=== PATIENT | male | born 1945 | race Caucasian/White ===

== ENCOUNTER → 2017-02-20 | Outpatient (CLI) | payer BC ==
[~2017-02-20] MED LIST: AMLO-114 PO; APIX1TAB3 PO; ASCA500 PO; ASPI81TA28 PO; CARV12.5 PO; CEPH500C2 PO; COEN1CAP7 PO; ERYOPO OPL; MULT-506 PO; OXYC-57 PO
--- NOTE | 2017-02-27 08:53 | CODING QUERY MEDICAL NECESSITY ---
SUPPORTING DIAGNOSIS NEEDED Dr. Guevara, A supporting diagnosis is required for the test/procedure performed on this patient in order for us to be reimbursed by the patient's insurance. Please provide a supporting diagnosis for the following test/procedure listed below next to the test name along with your signature. *If there is no additional diagnosis for this patient that would support the following test/procedure please document that below next to the test/procedure. Test(s)/Procedure(s) that require a supporting diagnosis: * [id number] PSA DIAGNOSIS: DATE OF SERVICE: 02/20/17 Provider Signature: Date: Thank you Alexys Lowe [facility] Information Management Once completed, please kindly fax back to [phone] For questions please call [phone]
== END ==
LOC: C.LAB 11:14
PROVIDERS: ATTEND Urology
DX: Z00.00 Encounter for general adult medical examination without abnormal findings (principal); N20.0 Calculus of kidney; Z87.442 Personal history of urinary calculi; Z12.5 Encounter for screening for malignant neoplasm of prostate

== ENCOUNTER → 2017-02-24 | Outpatient (CLI) | payer BC ==
--- NOTE | 2017-02-24 12:24 | DIAGNOSTIC IMAGING REPORT ---
CT SCAN OF THE PARANASAL SINUSES CLINICAL HISTORY: Sinusitis. Sinus polyp. COMPARISON STUDY: No priors. TECHNIQUE: High-resolution CT scan of the paranasal sinuses is performed. Images are reviewed in the axial, sagittal, and coronal planes. IV contrast was not administered for this examination. A dose lowering technique was utilized adhering to the principles of ALARA. CT DOSE: 365.52 mGycm FINDINGS: Maxillary antra: There is trace dependent mucosal thickening seen bilaterally. Small bony septations are seen inferiorly within both maxillary antra Anterior ethmoid sinuses: Mild mucosal thickening is seen on the left. Trace mucosal thickening is seen on the right. Posterior ethmoid sinuses: Trace mucosal thickening is seen in the left. Clear on the right. Sphenoid sinuses: Clear. Frontal sinuses: Mild to moderate mucosal thickening is on the left. Trace mucosal thickening is seen on the right. Ostiomeatal complexes: Patent bilaterally. Frontoethmoidal and sphenoethmoidal recesses: Patent bilaterally. There is mild narrowing of the left frontoethmoidal recess secondary to mucosal thickening Carotid arteries: The carotid arteries are protuberant but covered and there are bilateral septal attachments. Ethmoid roofs: There is asymmetric elevation of the left ethmoid roof as compared to the right. Nasal turbinates: There is gema bullosa of the right middle nasal turbinate. There is a polypoid soft tissue structure identified in the expected location of the left middle nasal turbinate adjacent to a large bony spur of the nasal septum. This measures up to 1.8 cm and may represent a polyp in the nasal cavity. This bulges towards the left maxillary antrum and narrows the ostiomeatal complex. Nasal septum: There is marked leftward deviation of the bony nasal septum with a large spur. Optic nerves: Covered. Orbits: The bony orbits are intact. Orbital contents are normal in appearance. Calvarium: The skeletal structures are osteopenic. The imaged calvarium is normal in appearance Mastoid air cells: Well pneumatized. Brain parenchyma: Partially visualized brain parenchyma is within normal limits noting age-related involutional change. There is atherosclerotic calcification of the cavernous carotid arteries. IMPRESSION: 1. Mild paranasal sinus disease as detailed above. 2. There is a 1.8 cm lobulated soft tissue structure within the left nasopharynx in the expected location of the middle nasal turbinate. This protrudes towards the maxillary antrum and may represent a polyp as clinically suggested. Electronically signed by: Javi Bello M.D. 02/24/2017 12:23 PM Dictated Date/Time: 02/24/2017 12:18 PM
== END | disposition home or self-care (01) ==
LOC: C.CTS 11:20
PROVIDERS: ATTEND Otolaryngology
DX: J32.2 Chronic ethmoidal sinusitis (principal); J33.8 Other polyp of sinus

== ENCOUNTER 2017-03-10 05:06 | Day surgery (SDC) | payer BC ==
[2017-03-06 09:00] VITALS: BMI 33.0
--- NOTE | 2017-03-06 09:51 | PAT Medication Instructions ---
Service Date Mar 06, 2017. Current Home Medication List Amlodipine (Norvasc), 10 MG PO QAM Apixaban (Eliquis), 5 MG PO QPM Ascorbic Acid (Vitamin C), 1 TAB PO QDL Aspirin (Aspirin Ec), 81 MG PO QAM Carvedilol (Coreg), 0.5 TAB PO QPM Coenzyme Q10 (Ubidecarenone) (Coq10), 1 CAP PO QPM Multivitamin (Multivitamin), 1 TAB PO QPM Medication Instructions For Your Scheduled Surgery - Check with surgeon for instructions: Apixaban (Eliquis), 5 MG PO QPM Aspirin (Aspirin Ec), 81 MG PO QAM - Hold the following medications starting : Coenzyme Q10 (Ubidecarenone) (Coq10), 1 CAP PO QPM - Take the following medications the morning of surgery with a sip of water: Amlodipine (Norvasc), 10 MG PO QAM - Take the following medications as scheduled the night before surgery: Multivitamin (Multivitamin), 1 TAB PO QPM Carvedilol (Coreg), 0.5 TAB PO QPM Ascorbic Acid (Vitamin C), 1 TAB PO QDL If you have any questions please call us at [phone] or [phone] or [phone]
--- NOTE | 2017-03-09 10:31 | History and Physical ---
History & Physical Date Mar 09, 2017. Chief Complaint Chronic sinusitis History of Present Illness The patient is a 71 year old male with complaints of chronic sinusitis and deviated septum Additional History Hepatic Disease: No Endocrine Disorder: No Kidney Disease: No Hypertension: No Heart Disease: No Bleeding Tendencies: No Infectious Diseases: No Allergies Coded Allergies: No Known Allergies (Unverified , 03/06/17) Home Medications Scheduled Amlodipine (Norvasc), 10 MG PO QAM Apixaban (Eliquis), 5 MG PO QPM Ascorbic Acid (Vitamin C), 1 TAB PO QDL Aspirin (Aspirin Ec), 81 MG PO QAM Carvedilol (Coreg), 0.5 TAB PO QPM Coenzyme Q10 (Ubidecarenone) (Coq10), 1 CAP PO QPM Multivitamin (Multivitamin), 1 TAB PO QPM Physical Examination Skin: warm/dry, no rash Eyes: normal inspection, EOMI, sclerae normal ENT: normal ENT inspection, pharynx normal Head: normocephalic, atraumatic Neck: supple, no adenopathy, trachea midline Respiratory/Chest: lungs clear, normal breath sounds, no respiratory distress Cardiovascular: regular rate, rhythm, no edema, no murmur Abdomen / GI: normal bowel sounds, non tender Back: normal inspection Extremities: normal inspection, normal range of motion Neurologic/Psych: no motor/sensory deficits, alert, normal reflexes, oriented x 3 Diagnosis Chronic sinusitis and deviated septum Plan of Treatment Septoplasty and endoscopic sinus surgery
[~2017-03-10] VITALS: Ht 180.3 cm; Wt 106.2 kg
[~2017-03-10 05:06] MED LIST changes: -CEPH500C2 PO; -ERYOPO OPL; -OXYC-57 PO
[2017-03-10 05:44] VITALS: BP 175/99; PULSE 65; TEMP 36.5; O2SAT 97; Ht 180.3 cm; Wt 106.2 kg
[2017-03-10] MEDS ORDERED: CEFAZOLIN 2000 MG/60 ML D5W IV SCH (06:00)
[2017-03-10] MEDS ORDERED: LACTATED RINGER'S 1000ML 1,000 ML IV SCH (06:00)
[2017-03-10] MEDS ORDERED: FENTANYL CITRATE INJ 50 MCG/1 ML 2 ML VIAL ONE (06:55)
[2017-03-10] MEDS ORDERED: HYDROmorphone INJ 2 MG/ML SYR/VIAL ONE (06:55)
[2017-03-10] MEDS ORDERED: MIDAZOLAM HCL 1 MG/ML 2ML VIAL ONE (06:55)
--- NOTE | 2017-03-10 07:01 | History & Physical Bridge Note ---
H&P Re-Evaluation Bridge Note: I have examined the patient, reviewed the History & Physical and in the interval since the performance of the History & Physical I have noted the following changes of clinical significance: No changes noted
[2017-03-10] MEDS ORDERED: BACITRACIN OINT 15 GM TUBE ONE (07:03)
[2017-03-10] MEDS ORDERED: GELATIN SPONGE 12-7MM ONE (07:03)
[2017-03-10] MEDS ORDERED: TRIAMCINOLONE ACET 40 MG/ML VIAL ONE (07:03)
[2017-03-10] MEDS ORDERED: LIDO 2%/EPINEPHRINE 1:100000 20 ML VIAL INFIL ONE (07:03)
[2017-03-10] MEDS ORDERED: LIDOCAINE 4% INH SOLN 4 ML BTL ONE (07:04)
[2017-03-10] MEDS ORDERED: EpINEphrine INJ 1MG/ML AMP 1 MG/ML AMP ONE (07:04)
[2017-03-10] MEDS ORDERED: EpHEDrine SULFATE 50MG/5ML SYR ONE (07:54)
[2017-03-10] MEDS ORDERED: NEOSTIGMINE METHYLSULFATE 5 MG/5 ML SYR ONE (07:54)
[2017-03-10] MEDS ORDERED: PROPOFOL IV EMULSION 10 MG/ML 20 ML VIAL IV ONE (07:54)
[2017-03-10] MEDS ORDERED: DEXAMETHASONE SOD INJ 4 MG/ML VIAL ONE (07:54)
[2017-03-10] MEDS ORDERED: GLYCOPYRROLATE INJ 0.2 MG/ML VIAL ONE (07:54)
[2017-03-10] MEDS ORDERED: LIDOCAINE HCL 2% 2 ML VIAL (20MG/ML) ONE (07:54)
[2017-03-10] MEDS ORDERED: ONDANSETRON INJ 2 MG/ML 2 ML VIAL ONE (07:54)
[2017-03-10] MEDS ORDERED: ROCURONIUM BROMIDE 10 MG/ML 5 ML VIAL ONE (07:54)
[2017-03-10] MEDS ORDERED: LARYING-O-JET KIT (LTA) ONE ×2 (08:00)
[2017-03-10] MEDS ORDERED: ONDANSETRON INJ 2 MG/ML 2 ML VIAL IV PRN (08:30)
[2017-03-10] MEDS ORDERED: FENTANYL CITRATE INJ 50 MCG/1 ML 2 ML VIAL IV PRN (08:30)
[2017-03-10] MEDS ORDERED: ATROPINE SULFATE 0.1 MG/ML 5ML SYR IV PRN (08:30)
[2017-03-10] MEDS ORDERED: EpHEDrine SULFATE INJ 50 MG/ML AMP IV PRN (08:30)
[2017-03-10] MEDS ORDERED: SODIUM CHLORIDE 0.9% 1000ML 1,000 ML IV SCH (09:09)
[2017-03-10] MEDS ORDERED: OXYCODONE/ACETAMINOPHEN 5-325 TAB PO PRN ×2 (09:15)
--- NOTE | 2017-03-10 09:15 | [facility] Operative Report ---
Operative Report Operative Date Mar 10, 2017. Pre-Operative Diagnosis Chronic sinusitis and deviated septum Post-Operative Diagnosis same as pre-operative Procedure(s) Performed Endoscopic Sinus Surgery of Right and Left Total Ethmoidectomies, Right and Left Total Maxillary and Frontal Sinusotomies with Computer Guidance and Septoplasty Surgeon Dr. Saab Audiovisual Technician Surgeon(s) none per surgeon Estimated Blood Loss 100ml Findings Large left antrochoanal polyp Specimens A: left nasal polyp Anesthesia Gen. endotracheal Complication(s) None Disposition Recovery Room / PACU Indications 71-year-old gentleman with chronic sinusitis and large left antral choanal polyp with opacified frontal ethmoid and maxillary sinuses and septal deviation to the left Description of Procedure The patient was brought to the operating room placed in the supine position. General endotracheal anesthesia was induced. [employer] device was calibrated and used for the entire procedure. Cottonoids with topical solution of 4 mL of 4% Xylocaine mixed with 1 mL of epinephrine was used. Injection of 2% Xylocaine with 1 100,000 strength epinephrine was used. The right maxillary sinus was cannulated with the guidewire and dilated using the 6 mm balloon. The left maxillary sinus could not be cannulated due to the large polyp. The left nasal frontal duct was cannulated with the guidewire with [employer] computer guidance and dilated using the 6 mm balloon. The guidewire was left in place as a marker. Frontal sinusotomy was performed using the shaver couple with the [employer] device removing the anterior wall and then the posterior wall vac are nasi cell following the guidewire superiorly to open up the nasal frontal duct. At this point total ethmoidectomy was performed opening up the bullae ethmoidalis going through the ground lamella into the posterior ethmoid air cells, delineating the posterior most ethmoid air cell. The lamina papyracea and skull base were identified and followed anteriorly exonerating all the posterior and then all the anterior ethmoid air cells up to the previously dilated nasal frontal duct. The nasal frontal duct was redilated with the 6 mm meter balloon and suctioned clean of purulent material. The maxillary sinus was opened after removing a large antrochoanal polyp. The sinus opening was found using the seeker and then connected to the opening where the polyp came through creating a large left maxillary sinus antrostomy. The right frontal sinusotomy and total ethmoidectomy was performed in a similar manner. The right maxillary sinus was left as a natural maxillary opening which was dilated. At this point septoplasty was was performed using the 15 blade the caudal dissector the [place] dissector and the Richard forceps. A large bony and cartilaginous spur projecting to the left inferiorly was removed. The incision was along the spur and superior inferior tunnels were elevated to isolate the spur which was fractured superiorly and removed. Propel stents were placed and a piece of Gelfoam was placed along the left side the septum. The patient tolerated the procedure well was taken recovery area in satisfactory condition. I attest to the content of the Intraoperative Record and any orders documented therein. Any exceptions are noted below.
[2017-03-10] MEDS ORDERED: CEPH500C2 PO (09:17)
[2017-03-10] MEDS ORDERED: OXYC-57 PO (09:17)
--- NOTE | 2017-03-10 09:18 | Discharge Instructions ---
Discharge Instructions Date of Service Mar 10, 2017. Admission Reason for Admission: Chronic Sinusitis, Deviated Septum Discharge Discharge Diagnosis / Problem: same Discharge Goals Goal(s): Improve disease control Activity Recommendations Activity Limitations: per Instructions/Follow-up section . Instructions / Follow-Up Instructions / Follow-Up ACTIVITY RECOMMENDATIONS: * Being up and around is good, but no strenuous activity, heavy lifting or physical exertion for one week. * Keep your head elevated 30 degrees when lying down or sleeping. * Do not blow your nose for 48 hours, sniff back instead. * Avoid hot showers. OVER THE COUNTER MEDICATIONS: * You may use Tylenol * Avoid aspirin or aspirin containing products, e.g. as they may increase bleeding. SPECIAL CARE INSTRUCTIONS: * Expect to have bloody drainage from your nose and/or down your throat for one to three days. Change drip pad as needed. * Begin irrigating your nose with saline solution today, at least six to ten times per day and sniff back to help remove old clots or crust. * You may experience nasal and facial congestion, pain and pressure, this is normal. * Please call with any significant and/or progressive pain, redness, swelling around the eyes, visual changes, fever of 101.5 degrees F, active bleeding or any problems or concerns. * If active bleeding occurs, spray the nose three times at one minute intervals with Afrin spray and call or cell phone: . If unable to reach the doctor, go to the nearest Emergency Department. Special Diet: * Avoid extremely hot fluids. FOLLOW UP VISIT: Follow-up Visit with Dr. Saab If not already scheduled, please call to schedule. Current Hospital Diet Patient's current hospital diet: Discharge Diet Recommended Diet: Regular Diet Procedures Procedures Performed: Endoscopic Sinus Surgery of Right and Left Total Ethmoidectomies, Right and Left Total Maxillary and Frontal Sinusotomies with Computer Guidance and Septoplasty Pending Studies Studies pending at discharge: no Medical Emergencies . Who to Call and When: Medical Emergencies: If at any time you feel your situation is an emergency, please call 911 immediately. . Non-Emergent Contact Non-Emergency issues call your: Primary Care Provider . "Provider Documentation" section prepared by Brigitte Saab. . VTE Core Measure Inpt VTE Proph given/why not?: SCD's [place] Drug Monitoring Program Search Results: no issues identified
[2017-03-10] MEDS ORDERED: LABETALOL HCL IV 5 MG/ML 20ML IV ONE (09:23)
[2017-03-10] MEDS ORDERED: NURSING VERBAL MED ORDER ONE ×2 (10:00→10:45)
[2017-03-10] MEDS ORDERED: PROMETHAZINE HCL INJ 6.25 MG in SODIUM CHLORIDE 0.9% 50ML 50 ML IV ONE ×2 (10:15→10:45)
--- NOTE | 2017-03-10 11:06 | Anesthesiology Progress Note ---
Anesthesia Post Op Note Date & Time Mar 10, 2017 at 11:06 Vital Signs Pain Intensity: 0 Vital Signs Past 12 Hours Date Time Temp Pulse Resp B/P (MAP) Pulse Ox O2 Delivery O2 Flow Rate FiO2 03/10/17 11:02 36.2 67 20 165/88 97 Nasal Cannula 2 03/10/17 11:01 165/88 03/10/17 11:00 70 23 03/10/17 11:00 71 23 98 03/10/17 10:56 156/83 03/10/17 10:55 66 15 95 03/10/17 10:55 68 15 03/10/17 10:51 167/85 03/10/17 10:50 72 13 94 03/10/17 10:50 71 13 03/10/17 10:46 155/94 03/10/17 10:45 68 13 92 03/10/17 10:45 66 13 03/10/17 10:41 171/83 03/10/17 10:40 75 27 03/10/17 10:40 75 27 95 03/10/17 10:36 154/94 03/10/17 10:35 64 12 03/10/17 10:35 64 12 92 03/10/17 10:31 155/93 03/10/17 10:30 65 14 03/10/17 10:30 64 14 95 03/10/17 10:26 166/107 03/10/17 10:25 69 20 92 03/10/17 10:25 71 20 03/10/17 10:21 177/92 03/10/17 10:20 73 14 03/10/17 10:20 74 14 97 03/10/17 10:16 171/93 03/10/17 10:15 70 14 03/10/17 10:15 69 14 96 03/10/17 10:11 182/96 03/10/17 10:10 72 11 03/10/17 10:10 71 11 99 03/10/17 10:06 185/103 03/10/17 10:05 61 11 03/10/17 10:05 62 11 94 03/10/17 10:01 178/99 03/10/17 10:00 63 13 03/10/17 10:00 62 13 95 03/10/17 09:56 176/98 03/10/17 09:55 59 15 93 03/10/17 09:55 59 15 03/10/17 09:51 161/93 03/10/17 09:50 70 15 03/10/17 09:50 74 15 93 03/10/17 09:46 171/92 03/10/17 09:45 58 8 96 03/10/17 09:45 57 8 03/10/17 09:43 179/102 03/10/17 09:41 179/113 03/10/17 09:40 73 9 03/10/17 09:40 73 9 97 03/10/17 09:36 172/95 03/10/17 09:35 78 15 96 03/10/17 09:35 78 15 03/10/17 09:31 177/94 03/10/17 09:30 69 28 91 03/10/17 09:30 69 28 03/10/17 09:29 175/102 03/10/17 09:26 196/113 03/10/17 09:25 79 16 94 03/10/17 09:25 79 16 03/10/17 09:21 140/100 03/10/17 09:20 69 6 03/10/17 09:20 70 6 189/101 95 03/10/17 09:16 190/95 03/10/17 09:15 36 67 18 190/95 99 Mask 10 03/10/17 09:15 75 9 03/10/17 09:15 75 9 97 03/10/17 05:44 36.5 65 20 175/99 (124) 97 Room Air Notes Mental Status: alert / awake / arousable, participated in evaluation Pt Amnestic to Procedure: Yes Nausea / Vomiting: adequately controlled Pain: adequately controlled Airway Patency, RR, SpO2: stable & adequate BP & HR: stable & adequate Hydration State: stable & adequate Anesthetic Complications: no major complications apparent
[2017-03-10 11:15] VITALS: BP 165/86; PULSE 81; TEMP 36.2; O2SAT 97
[2017-03-10 11:45] VITALS: BP 174/83; PULSE 84; O2SAT 94
== END 2017-03-10 13:10 | disposition home or self-care (01) ==
LOC: C.ACU 05:06
PROVIDERS: ATTEND Otolaryngology
DX: J32.9 Chronic sinusitis, unspecified (principal); J34.2 Deviated nasal septum; J33.9 Nasal polyp, unspecified; Z79.82 Long term (current) use of aspirin; Z79.899 Other long term (current) drug therapy

== ENCOUNTER 2017-05-07 13:34 | Emergency (ER) | payer BC ==
[~2017-05-07] VITALS: Ht 180.3 cm; Wt 109.2 kg
[~2017-05-07 13:34] MED LIST changes: +CEPH500C2 PO; +OXYC-57 PO
[2017-05-07 13:36] VITALS: TEMP 36.6; Ht 180.3 cm; Wt 109.2 kg
--- NOTE | 2017-05-07 14:02 | EMERGENCY ROOM VISIT NOTE ---
History Report prepared by Meganibe: Dacia Gardiner Under the Supervision of: Dr. Shekhar Schumacher M.D. First contact with patient: 13:53 Chief Complaint: FACIAL PAIN/INJURY Stated Complaint: LEFT FACIAL PAIN History of Present Illness The patient is a 71 year old male who presents to the Emergency Room with complaints of persistent left sided facial pain for the past 2 days. He reports he had a polyp removed from his left nasal cavity by Dr. Saab on March 10. 2 days ago, his left eye started to "turn red" and he developed discomfort in his left eye, left ear and left facial area. He describes his pain as feeling like "fullness". He has also experienced decreased vision in his left eye. He followed with an Child Development Professor in [place] approximately 2 weeks ago, who told him he may have "gel loose in the area". He saw Dr. Saab on April 24 and reports "everything looked good then". The patient complains of rhinorrhea, but states "it's been doing that for awhile". He denies any recent fevers, chills or cough. 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 A total of ten systems were reviewed and were otherwise negative. Past Medical & Surgical Medical Problems: (1) Atrial fibrillation (2) Left nasal polyps Surgical Problems: (1) History of nasal surgery Social History Smoking Status: Never Smoker Alcohol Use: occasionally Drug Use: none Marital Status: Housing Status: lives with family Occupation Status: retired Current/Historical Medications Scheduled Amlodipine (Norvasc), 10 MG PO QAM Apixaban (Eliquis), 5 MG PO QPM Ascorbic Acid (Vitamin C), 1 TAB PO DAILY Aspirin (Aspirin Ec), 81 MG PO QAM Carvedilol (Coreg), 6.25 MG PO BID Coenzyme Q10 (Ubidecarenone) (Coq10), 1 CAP PO QPM Erythromycin Opth (Erythromycin Opth), 1 APPLN OPL QID Multivitamin (Multivitamin), 1 TAB PO QPM Allergies Coded Allergies: No Known Allergies (Unverified , 05/07/17) Physical Exam Vital Signs Date Time Temp Pulse Resp B/P (MAP) Pulse Ox O2 Delivery O2 Flow Rate FiO2 05/07/17 16:35 60 20 184/96 98 05/07/17 15:06 66 18 165/93 96 Room Air 05/07/17 13:36 36.6 75 20 166/97 97 Room Air Physical Exam GENERAL: Awake, alert, well-appearing, in no distress HENT: Normocephalic, atraumatic. Oropharynx unremarkable. TM's unremarkable. EYES: left eye shows yellowish film on nasal aspect of sclera, otherwise anterior chamber is grossly clear. EOMI, no disconjugate gaze, no proptosis, no periorbital erythema or warmth, no mastoid tenderness. NECK: Supple. No nuchal rigidity. FROM. No JVD. RESPIRATORY: Clear to auscultation. CARDIAC: Regular rate, normal rhythm. Extremities warm and well perfused. Pulses equal. ABDOMEN: Soft, non-distended. No tenderness to palpation. No rebound or guarding. No masses. RECTAL: Deferred. MUSCULOSKELETAL: Chest examination reveals no tenderness. The back is symmetrical on inspection without obvious abnormality. There is no CVA tenderness to palpation. No joint edema. LOWER EXTREMITIES: Calves are equal size bilaterally and non-tender. No edema. No discoloration. NEURO: Normal sensorium. No sensory or motor deficits noted. SKIN: No rash or jaundice noted. Medical Decision & Procedures ER Provider Diagnostic Interpretation: Radiology results as stated below per my review and radiologist interpretation: FACIAL-MAXILLOFACIAL WITH CLINICAL HISTORY: 71 years-old Male presenting with left eye sinus ear pain. s/p sinus surgery r/o infection. TECHNIQUE: Multidetector CT of the face was performed after the administration of intravenous contrast. IV contrast: 94 mL of Optiray 320. A dose lowering technique was used consistent with the principles of ALARA (as low as reasonably achievable). COMPARISON: 02/24/2017. CT DOSE (mGy.cm): The estimated cumulative dose is 367.04 mGycm. FINDINGS: Wharf Tender topogram: Unremarkable. Limited intracranial evaluation within normal limits. Vessels patent. Orbits normal. Postsurgical changes of left uncinectomy with resection of the previously noted ovoid mass in the left nasal cavity. Resection of the middle turbinate also noted. Persistent leftward deviation of the osseous nasal septum. Paranasal sinuses and mastoid air cells clear. No residual mass or new polypoid mucosal lesion. The external auditory canals are patent. Middle ears patent. Temporal mandibular joints intact. Specifically, no abnormality in the region of the left pinna or left globe. Osseous structures of the face within normal limits. Upper cervical spine normal. No lymphadenopathy in the upper cervical region. IMPRESSION: 1. Expected postsurgical changes status post uncinectomy, middle turbinectomy, and left nasal mass resection. No new abnormality. No sinusitis on the current exam. Electronically signed by: Guille Curtis M.D. 05/07/2017 2:57 PM Laboratory Results 05/07/17 14:10 Red Blood Count 4.01, Mean Corpuscular Volume 92.3, Mean Corpuscular Hemoglobin 31.2, Mean Corpuscular Hemoglobin Concent 33.8, Mean Platelet Volume 9.8, Neutrophils (%) (Auto) 64.3, Lymphocytes (%) (Auto) 23.9, Monocytes (%) (Auto) 6.9, Eosinophils (%) (Auto) 4.3, Basophils (%) (Auto) 0.4, Neutrophils # (Auto) 3.18, Lymphocytes # (Auto) 1.18, Monocytes # (Auto) 0.34, Eosinophils # (Auto) 0.21, Basophils # (Auto) 0.02 05/07/17 14:10 Test 05/07/17 14:10 White Blood Count 4.94 K/uL (4.8-10.8) Red Blood Count 4.01 M/uL (4.7-6.1) Hemoglobin 12.5 g/dL (14.0-18.0) Hematocrit 37.0 % (42-52) Mean Corpuscular Volume 92.3 fL (80-100) Mean Corpuscular Hemoglobin 31.2 pg (25-34) Mean Corpuscular Hemoglobin Concent 33.8 g/dl (32-36) Platelet Count 269 K/uL (130-400) Mean Platelet Volume 9.8 fL (7.4-10.4) Neutrophils (%) (Auto) 64.3 % Lymphocytes (%) (Auto) 23.9 % Monocytes (%) (Auto) 6.9 % Eosinophils (%) (Auto) 4.3 % Basophils (%) (Auto) 0.4 % Neutrophils # (Auto) 3.18 K/uL (1.4-6.5) Lymphocytes # (Auto) 1.18 K/uL (1.2-3.4) Monocytes # (Auto) 0.34 K/uL (0.11-0.59) Eosinophils # (Auto) 0.21 K/uL (0-0.5) Basophils # (Auto) 0.02 K/uL (0-0.2) RDW Standard Deviation 46.1 fL (36.4-46.3) RDW Coefficient of Variation 13.8 % (11.5-14.5) Immature Granulocyte % (Auto) 0.2 % Immature Granulocyte # (Auto) 0.01 K/uL (0.00-0.02) Anion Gap 10.0 mmol/L (3-11) Est Creatinine Clear Calc Drug Dose 85.1 ml/min Estimated GFR () 87.4 Estimated GFR (Non- 75.4 BUN/Creatinine Ratio 15.3 (10-20) Calcium Level 8.2 mg/dl (8.5-10.1) Laboratory results reviewed by me Medications Administered Medications (Trade) Dose Ordered Sig/Sonam Route Start Time Stop Time Status Last Admin Dose Admin Erythromycin (Erythromycin Oph Oint) 1 appln NOW STAT OP 05/07/17 16:18 05/07/17 16:20 DC 05/07/17 16:18 1 APPLN Procedure EM Limited Ocular Ultrasound :Debris floating in globe consistent with vitreous hemorrhage. No sign of retinal detachment or vitreous detachment. Slit lamp exam: Anterior chamber is clear. No corneal ulcer or abrasions. Normal fluorescence uptake. Findings consistent with conjunctivitis. ED Course 1354: The patient was evaluated in room B12B. A complete history and physical exam was performed. 1425: Proparacaine HCl 1 drops OP. 1520: I reevaluated and updated the patient. He is resting comfortably. 1554: I performed a slit lamp exam on the patient. See procedure note for full details. 1618: Erythromycin 1 application OP 1630: I reevaluated the patient. He is feeling well and resting comfortably. I discussed his results and discharge instructions and he verbalized complete understanding and agreement. Medical Decision I reviewed the patient's past medical history, medications, and the nursing notes as described above. The patient's presentation and history were concerning for sinusitis, orbital cellulitis, post-operative bleeding, post-operative hematoma, corneal ulcer, keratitis, vitreous hemorrhage or detachment. The patient is a 71-year-old gentleman with a past medical history of a recent sinus polyp resection who presents emergency Department with the complaint of left eye pain and ear pain in the setting of this procedure history of present illness. Denies fevers chills nausea vomiting headaches or dizziness. Exam he has injection to the left sclera. Slit lamp exam shows anterior chamber clear, no corneal ulcer or abrasion and has normal n flume ride operator seen g uptake. Bedside ocular ultrasound shows floating debris within the globe consistent with vitreous hemorrhage however no gross evidence of vitreous detachment or retinal detachment. Moreover RN visual acuity demonstrates worse acuity in the right eye is his baseline. CT of the max face with contrast negative for any infection and findings consistent with postoperative status. Labs otherwise unremarkable with WBC within normal limits. Injection and serous discharge most c/w conjunctivitis. 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 Findings and plan for follow-up reviewed with patient. Patient agreeable and d/c'd per discharge instructions. Medication Reconcilliation Current Medication List: was personally reviewed by me Blood Pressure Screening Patient's blood pressure: Elevated blood pressure Blood pressure disposition: Elevated BP felt to be situational Impression Primary Impression: Conjunctivitis Scribe Attestation The scribe's documentation has been prepared under my direction and personally reviewed by me in its entirety. I confirm that the note above accurately reflects all work, treatment, procedures, and medical decision making performed by me. Departure Information Dispostion Home / Self-Care Prescriptions Erythromycin Opth (ERYTHROMYCIN OPTH) 12 Appln/3.5 Gm Oint 1 APPLN OPL QID for 7 Days, #1 TUBE Prov: Shekhar Schumacher M.D. 05/07/17 Referrals No Doctor, Assigned (PCP) Patient Instructions Conjunctivitis, My [facility] Additional Instructions Please follow up with your glue jointer feeder tomorrow for re-evaluation as well as with your ENT surgeon for your ear discomfort. You likely have a conjunctivitis. Otherwise, your exam, lab results, CT scan of your face did not show signs of an emergent condition at this time. Apply erythromycin ointment as directed. Return to the emergency department for worsening symptoms as described in the accompanying instructions.
[2017-05-07] MEDS ORDERED: PROPARACAINE HCL 0.5% OP SOLN 15 ML BTL OP STA (14:25)
[2017-05-07 14:29] LABS: BASO % 0.4 %; BASO ABS # 0.02 K/uL (0-0.2); COMPLETE YES; EOS % 4.3 %; IG% 0.2 %; LYMPH % 23.9 %; LYMPH ABS # 1.18 K/uL (1.2-3.4); MEAN CELL VOLUME 92.3 fL (80-100); MEAN CORPUSCULAR HEMOGLOBIN 31.2 pg (25-34); MEAN CORPUSCULAR HGB CONC 33.8 g/dl (32-36); MEAN PLATELET VOLUME 9.8 fL (7.4-10.4); MONO % 6.9 %; NEUT % 64.3 %; PLATELET COUNT 269 K/uL (130-400); RED BLOOD COUNT 4.01 M/uL (4.7-6.1); WHITE BLOOD COUNT 4.94 K/uL (4.8-10.8)
[2017-05-07] MEDS ORDERED: OPTIRAY 320 IV PRN (14:30)
[2017-05-07 14:44] LABS: BUN/CREATININE RATIO 15.3 (10-20); CALCIUM 8.2 mg/dl (8.5-10.1); POTASSIUM 3.4 mmol/L (3.5-5.1)
--- NOTE | 2017-05-07 14:59 | DIAGNOSTIC IMAGING REPORT ---
FACIAL-MAXILLOFACIAL WITH CLINICAL HISTORY: 71 years-old Male presenting with left eye sinus ear pain. s/p sinus surgery r/o infection. TECHNIQUE: Multidetector CT of the face was performed after the administration of intravenous contrast. IV contrast: 94 mL of Optiray 320. A dose lowering technique was used consistent with the principles of ALARA (as low as reasonably achievable). COMPARISON: 02/24/2017. CT DOSE (mGy.cm): The estimated cumulative dose is 367.04 mGycm. FINDINGS: Strike Warfare/Missile Systems Officer topogram: Unremarkable. Limited intracranial evaluation within normal limits. Vessels patent. Orbits normal. Postsurgical changes of left uncinectomy with resection of the previously noted ovoid mass in the left nasal cavity. Resection of the middle turbinate also noted. Persistent leftward deviation of the osseous nasal septum. Paranasal sinuses and mastoid air cells clear. No residual mass or new polypoid mucosal lesion. The external auditory canals are patent. Middle ears patent. Temporal mandibular joints intact. Specifically, no abnormality in the region of the left pinna or left globe. Osseous structures of the face within normal limits. Upper cervical spine normal. No lymphadenopathy in the upper cervical region. IMPRESSION: 1. Expected postsurgical changes status post uncinectomy, middle turbinectomy, and left nasal mass resection. No new abnormality. No sinusitis on the current exam. Electronically signed by: Guille Curtis M.D. 05/07/2017 2:57 PM Dictated Date/Time: 05/07/2017 2:52 PM
[2017-05-07] MEDS ORDERED: ERYTHROMYCIN OP OINT 5 MG/GM 3.5 GM TUBE OP STA (16:18)
[2017-05-07] MEDS ORDERED: ERYOPO OPL (16:23)
[2017-05-07 16:35] VITALS: BP 184/96; PULSE 60; O2SAT 98
== END 2017-05-07 16:36 | disposition home or self-care (01) ==
LOC: C.EDB 13:36
DX: H10.9 Unspecified conjunctivitis (principal); I48.91 Unspecified atrial fibrillation; Z79.82 Long term (current) use of aspirin; Z79.899 Other long term (current) drug therapy

== ENCOUNTER 2017-10-06 05:24 | Emergency (ER) | payer BC, OTHER ==
[~2017-10-06] VITALS: Ht 177.8 cm; Wt 105.9 kg
[~2017-10-06 05:24] MED LIST changes: -CEPH500C2 PO; +ERYOPO OPL; -OXYC-57 PO
[2017-10-06 05:27] VITALS: TEMP 36.3; Ht 177.8 cm; Wt 105.9 kg
--- NOTE | 2017-10-06 05:55 | EMERGENCY ROOM VISIT NOTE ---
History Report prepared by Jimmy: Chris Bhatia Under the Supervision of: Dr. Steven Moise M.D. First contact with patient: 05:34 Chief Complaint: CARDIAC ASSESSMENT Stated Complaint: IRRATIC HEART RATE,DON'T FEEL RIGHT History of Present Illness The patient is a 71 year old male who presents to the Emergency Room with complaints of irregular heart rate that began 2 hours ago. He has a history significant for atrial fibrillation and open heart surgery (Dr. Cat) and states when he checked his blood pressure, it was elevated and felt that his heart was racing. He states he has numbness in his hands, is short of breath, and had a recent cold (Mucinex). He states that he is on Eliquis. He denies chest pain, abdominal pain, and leg swelling. He denies blood clots, antibiotics , steroid use, and a history of thyroid problems. He states that he checked in with [employer] earlier this week and states there were no significant findings. Of note, he now follows up with Dr. Lazo and has an appointment scheduled for 10/16. Source of History: patient, family Onset: 2 hours ago Position: chest Symptom Intensity: pain rated as 1/10 Timing: constant Associated Symptoms: + SOB, + numbness (hands), No chest pain, No abdominal pain Note: Patient reports recent cold. He denies leg swelling. Review of Systems See HPI for pertinent positives & negatives. A total of 10 systems reviewed and were otherwise negative. Past Medical & Surgical Medical Problems: (1) Atrial fibrillation (2) Left nasal polyps Surgical Problems: (1) History of nasal surgery Social History Smoking Status: Never Smoker Alcohol Use: occasionally Drug Use: none Marital Status: Housing Status: lives with family Occupation Status: retired Current/Historical Medications Scheduled Amlodipine (Norvasc), 10 MG PO QAM Apixaban (Eliquis), 5 MG PO QPM Ascorbic Acid (Vitamin C), 1 TAB PO DAILY Aspirin (Aspirin Ec), 81 MG PO QAM Carvedilol (Coreg), 6.25 MG PO DAILY Coenzyme Q10 (Ubidecarenone) (Coq10), 1 CAP PO QPM Multivitamin (Multivitamin), 1 TAB PO QPM Allergies Coded Allergies: No Known Allergies (Unverified , 10/06/17) Physical Exam Vital Signs Date Time Temp Pulse Resp B/P (MAP) Pulse Ox O2 Delivery O2 Flow Rate FiO2 10/06/17 07:35 69 20 130/84 97 10/06/17 06:00 65 20 140/81 97 Room Air 10/06/17 05:57 98 Room Air 10/06/17 05:41 93 10/06/17 05:27 36.3 79 18 151/90 98 Room Air Physical Exam GENERAL: Patient is well appearing and in no acute distress. EYES: No scleral icterus, unremarkable pupils. ENT: Mucous membranes moist, no nasal congestion. NECK: No masses appreciated, no meningismus, trachea is midline. RESPIRATORY: No dyspnea. Clear to auscultation and equal bilaterally. No wheeze , no rhonchi. CARDIOVASCULAR: Irregular rate and rhythm. No murmurs, rubs, gallops appreciated. GASTROINTESTINAL: Abdomen soft, nontender, no peritonitis. Bowel sounds positive. No masses appreciated. BACK: No midline tenderness, no CVA tenderness EXTREMITIES: Normal motion all extremities, no cyanosis, no edema. NEUROLOGIC: Alert and oriented, no acute motor or sensory deficits, no focal weakness, cranial nerves grossly intact. SKIN: No rash, no jaundice, no diaphoresis. Medical Decision & Procedures Laboratory Results 10/06/17 05:50 Red Blood Count 4.11, Mean Corpuscular Volume 89.8, Mean Corpuscular Hemoglobin 30.9, Mean Corpuscular Hemoglobin Concent 34.4, Mean Platelet Volume 9.7, Neutrophils (%) (Auto) 70.7, Lymphocytes (%) (Auto) 18.3, Monocytes (%) (Auto) 7.8, Eosinophils (%) (Auto) 2.8, Basophils (%) (Auto) 0.2, Neutrophils # (Auto) 4.01, Lymphocytes # (Auto) 1.04, Monocytes # (Auto) 0.44, Eosinophils # (Auto) 0.16, Basophils # (Auto) 0.01 10/06/17 05:50 Test 10/06/17 05:50 White Blood Count 5.67 K/uL (4.8-10.8) Red Blood Count 4.11 M/uL (4.7-6.1) Hemoglobin 12.7 g/dL (14.0-18.0) Hematocrit 36.9 % (42-52) Mean Corpuscular Volume 89.8 fL (80-100) Mean Corpuscular Hemoglobin 30.9 pg (25-34) Mean Corpuscular Hemoglobin Concent 34.4 g/dl (32-36) Platelet Count 269 K/uL (130-400) Mean Platelet Volume 9.7 fL (7.4-10.4) Neutrophils (%) (Auto) 70.7 % Lymphocytes (%) (Auto) 18.3 % Monocytes (%) (Auto) 7.8 % Eosinophils (%) (Auto) 2.8 % Basophils (%) (Auto) 0.2 % Neutrophils # (Auto) 4.01 K/uL (1.4-6.5) Lymphocytes # (Auto) 1.04 K/uL (1.2-3.4) Monocytes # (Auto) 0.44 K/uL (0.11-0.59) Eosinophils # (Auto) 0.16 K/uL (0-0.5) Basophils # (Auto) 0.01 K/uL (0-0.2) RDW Standard Deviation 44.2 fL (36.4-46.3) RDW Coefficient of Variation 13.6 % (11.5-14.5) Immature Granulocyte % (Auto) 0.2 % Immature Granulocyte # (Auto) 0.01 K/uL (0.00-0.02) Anion Gap 7.0 mmol/L (3-11) Est Creatinine Clear Calc Drug Dose 96.0 ml/min Estimated GFR () 101.1 Estimated GFR (Non- 87.2 BUN/Creatinine Ratio 27.5 (10-20) Calcium Level 8.5 mg/dl (8.5-10.1) Magnesium Level 2.3 mg/dl (1.8-2.4) Troponin I < 0.015 ng/ml (0-0.045) Thyroid Stimulating Hormone (TSH) 3.960 uIu/ml (0.300-4.500) Laboratory results as reviewed by me. Medications Administered Medications (Trade) Dose Ordered Sig/Sonam Route Start Time Stop Time Status Last Admin Dose Admin Sodium Chloride 500 ml @ 999 mls/hr Q31M STAT IV 10/06/17 06:23 10/06/17 06:53 DC 10/06/17 06:36 999 MLS/HR ECG Per My Interpretation Indication: other (Atrial fibrillation) Rate (beats per minute): 68 Rhythm: atrial fibrillation Findings: no acute ischemic change, other (Normal QTc) Comparison ECG Date: Compated to previous EKG on 05/16/2007, he is now in Afib. ED Course 0534: The patient was evaluated in room B6. A complete history and physical exam was performed. 0715: Reevaluated the patient. Discussed results and discharge instructions: He verbalized understanding and agreement. The patient is ready for discharge. Medical Decision Differential: NSR, SVT, PACs, PVCs, Cardiac Dysrhythmia, Endocrine Dysfunction, Eletrolyte/Metabolic Abnormality, Pulmonary Embolism, Infectious, GI, amonst other pathologies entertained. Very pleasant 71 yr old male arrives with some mild feeling of palpitations though no significant symptoms. He is in Afib on arrival which he notes he had episode of years ago. Fortunately he has been on Eliquis since then without issues. Labs looks good other than mild BUN elevation. Suspect some dehydration given fact he was splitting wood yesterday, plus recent URI he just got over. Well appearing, no evidence of ischemia and in no distress. Reviewed with director of online merchandising cards who agree with continuing his Coreg and Eliquis. RTED if worsening or other concerns. Stable and looks well at discharge. Medication Reconcilliation Current Medication List: was personally reviewed by me Blood Pressure Screening Patient's blood pressure: Elevated blood pressure Blood pressure disposition: Elevated BP felt to be situational Impression Primary Impression: Atrial fibrillation Additional Impressions: Anticoagulant long-term use Dehydration Scribe Attestation The scribe's documentation has been prepared under my direction and personally reviewed by me in its entirety. I confirm that the note above accurately reflects all work, treatment, procedures, and medical decision making performed by me. Departure Information Dispostion Home / Self-Care Referrals WENDY GAO M.D. (PCP) Patient Instructions ED Afib, [facility] Additional Instructions Call your sow farm technician office later in day to see if there are any available earlier appointments with Dr Lazo, however if not your current appointment should be fine. Continue all medications as you already are taking them. If concerns or other symptoms develop we are always here to help. Problem Qualifiers
[2017-10-06 06:00] LABS: BASO % 0.2 %; BASO ABS # 0.01 K/uL (0-0.2); EOS % 2.8 %; EOS ABS # 0.16 K/uL (0-0.5); HEMATOCRIT 36.9 % (42-52); HEMOGLOBIN 12.7 g/dL (14.0-18.0); IG# 0.01 K/uL (0.00-0.02); LYMPH % 18.3 %; LYMPH ABS # 1.04 K/uL (1.2-3.4); MEAN CELL VOLUME 89.8 fL (80-100); MEAN CORPUSCULAR HEMOGLOBIN 30.9 pg (25-34); MEAN CORPUSCULAR HGB CONC 34.4 g/dl (32-36); MEAN PLATELET VOLUME 9.7 fL (7.4-10.4); MONO % 7.8 %; MONO ABS # 0.44 K/uL (0.11-0.59); NEUT % 70.7 %; NEUT ABS # 4.01 K/uL (1.4-6.5); PLATELET COUNT 269 K/uL (130-400); RED CELL DISTRIBUTION WIDTH CV 13.6 % (11.5-14.5); RED CELL DISTRIBUTION WIDTH SD 44.2 fL (36.4-46.3); WHITE BLOOD COUNT 5.67 K/uL (4.8-10.8)
[2017-10-06 06:17] LABS: BLOOD UREA NITROGEN 24 mg/dl (7-18); CALCIUM 8.5 mg/dl (8.5-10.1); CARBON DIOXIDE 25 mmol/L (21-32); CREATININE 0.86 mg/dl (0.60-1.40); GLUCOSE 139 mg/dl (70-99); POTASSIUM 3.8 mmol/L (3.5-5.1); SODIUM 140 mmol/L (136-145)
[2017-10-06] MEDS ORDERED: SODIUM CHLORIDE 0.9% 500ML 500 ML IV STA (06:23)
--- NOTE | 2017-10-06 07:20 | DIAGNOSTIC IMAGING REPORT ---
SINGLE VIEW CHEST CLINICAL HISTORY: Cough. Atrial fibrillation. FINDINGS: An AP, portable, upright chest radiograph is obtained. No prior studies are available for comparison at the time of dictation. The examination is degraded by portable technique and apical lordotic positioning. The patient is status post midline sternotomy. The heart is enlarged and there is atherosclerotic calcification of the thoracic aorta. The pulmonary vasculature is noncongested. There is nonspecific interstitial thickening. Mild bibasilar atelectasis is observed. There is no airspace consolidation or large pleural effusion. No pneumothorax is seen. Calcified granuloma is seen in the left lower lobe. The skeletal structures are osteopenic. The bony thorax is grossly intact. IMPRESSION: Cardiomegaly with no acute cardiopulmonary abnormality. Electronically signed by: Javi Bello M.D. 10/06/2017 7:18 AM Dictated Date/Time: 10/06/2017 7:18 AM
[2017-10-06 07:35] VITALS: BP 130/84; PULSE 69; O2SAT 97
== END 2017-10-06 07:35 | disposition home or self-care (01) ==
LOC: C.EDB 05:26
DX: I48.91 Unspecified atrial fibrillation (principal); E86.0 Dehydration; Z79.01 Long term (current) use of anticoagulants; R06.02 Shortness of breath; Z98.890 Other specified postprocedural states; Z79.82 Long term (current) use of aspirin